=== PATIENT | male | born 1970 | race Caucasian/White ===

== ENCOUNTER 2025-08-31 06:24 | Day surgery (SDC) | payer OTHER, SELFPAY ==
[2025-08-31] VITALS (7 sets, daily range): BP systolic 117–147; BP diastolic 78–94; BMI 26.0
[2025-08-31] MEDS: TYLENOL 1000 MG PO (12:36)
[2025-08-31] MEDS: NORMOSOL-R/PLASMALYTE-A 1000 IV (12:48)
[2025-08-31] MEDS: ZOFRAN 4 MG IV (17:40)
[2025-08-31] MEDS: DILAUDID 0.25 MG IV (17:56)
== END 2025-08-31 18:55 | disposition home or self-care (01) ==
LOC: SDS 06:24
PROVIDERS: ATTENDING PHYSICIAN Otolaryngology
DX: J34.2 Deviated nasal septum (principal); J34.3 Hypertrophy of nasal turbinates; R06.83 Snoring
CPT/HCPCS: 30140; 30520